=== PATIENT | male | born 1970 | race Caucasian/White ===

== ENCOUNTER 2017-07-05 14:08 | Emergency (ER) | payer MEDICAID ==
[~2017-07-05] VITALS: Ht 182.9 cm; Wt 83.9 kg
[2017-07-05 14:17] VITALS: BP_SYST 141
[2017-07-05] MEDS ORDERED: KETOROLAC TROMETHAMINE 60 MG/2 ML VIAL IM ONE (15:30)
[2017-07-05 15:38] VITALS: BP_SYST 132
== END 2017-07-05 15:38 | disposition home or self-care (01) ==
LOC: SED 14:08
DX: M25.511 Pain in right shoulder (principal); R03.0 Elevated blood-pressure reading, without diagnosis of hypertension; F17.210 Nicotine dependence, cigarettes, uncomplicated; Z71.6 Tobacco abuse counseling
CPT/HCPCS: 73030; 99284; J1885

== ENCOUNTER 2018-02-11 03:38 | Emergency (ER) | payer MEDICAID ==
[~2018-02-11] VITALS: Ht 182.9 cm; Wt 78.0 kg
[2018-02-11 03:38] VITALS: BP_SYST 123
[2018-02-11 04:37] VITALS: BP_SYST 123
== END 2018-02-11 04:37 ==
LOC: SED 03:38
DX: L02.414 Cutaneous abscess of left upper limb (principal); L02.413 Cutaneous abscess of right upper limb; G89.29 Other chronic pain; R03.0 Elevated blood-pressure reading, without diagnosis of hypertension
CPT/HCPCS: 99283